=== PATIENT | female | born 1980 ===

== ENCOUNTER 2021-12-19 12:00 | Observation (INO) | payer OTHER ==
[~2021-12-19] VITALS: Ht 167.6 cm; Wt 86.1 kg
[2021-12-19 12:38] LABS: BASOPHILS % (AUTO) 0.7 % (0.0-5.0); EOSINOPHILS % (AUTO) 2.3 % (0.0-8.0); HEMATOCRIT 41.6 % (36-48); LYMPHOCYTES % (AUTO) 31.6 % (21.0-51.0); MEAN CORPUSCULAR HEMOGLOBIN 31.6 pg (27.0-33.0); MEAN CORPUSCULAR HGB CONC 33.4 g/dL (32.0-36.0); MEAN CORPUSCULAR VOLUME 94.5 fL (79-99); MONOCYTES % (AUTO) 6.9 % (3.0-13.0); NEUTROPHILS % (AUTO) 57.8 % (40.0-77.0); PLATELET COUNT (AUTO) 285 K/uL (130-400); RED CELL DISTRIBUTION WIDTH 14.1 % (11.0-15.5); WHITE BLOOD COUNT (AUTO) 7.1 K/uL (4.8-10.8)
[2021-12-19 12:49] LABS: CREATININE 0.8 mg/dL (0.5-1.5); POTASSIUM 3.9 mmol/L (3.5-5.1)
[2021-12-19 12:51] LABS: INR 0.93 (0.85-1.15)
[2021-12-19 12:52] LABS: PARTIAL THROMBOPLASTIN TIME 28.7 SEC (26.3-35.5)
[2021-12-19 16:29] VITALS: BP 140/83
[2021-12-19] MEDS ORDERED: TOPI50TA24 PO (17:39)
[2021-12-19] MEDS ORDERED: ESCI20TA PO (17:39)
[2021-12-19] MEDS ORDERED: MINO100C6 PO (17:39)
[2021-12-19] MEDS ORDERED: LEVE1000 PO (17:39)
[2021-12-19] MEDS ORDERED: METH-387 PO (17:39)
[2021-12-19] MEDS ORDERED: NAPR-1023 PO (17:39)
[2021-12-21] VITALS (25 sets, daily range): BP systolic 103–128; BP diastolic 64–88
[2021-12-21] MEDS ORDERED: CEFAZOLIN SODIUM 1 GM VIAL ONE (06:38)
[2021-12-21] MEDS ORDERED: LACTATED RINGERS 1000ML 1,000 ML IV ONE (06:38)
[2021-12-21] MEDS ORDERED: LIDOCAINE 1%-EPI 1:100,000 20 ML VIAL IJ ONE (07:03)
[2021-12-21] MEDS ORDERED: FAMOTIDINE 20MG VIAL IV ONE (07:23)
[2021-12-21] MEDS ORDERED: HYDROMORPHONE 1 MG INJ ONE (07:23)
[2021-12-21] MEDS ORDERED: ROCURONIUM 10MG/1ML SYR 10 MG/ML ML ONE (07:25)
[2021-12-21] MEDS ORDERED: PROPOFOL 10 MG/ML 20ML VIAL IV ONE ×2 (07:25→07:30)
[2021-12-21] MEDS ORDERED: MIDAZOLAM HCL 1 MG/ML 2ML VIAL ONE (07:25)
[2021-12-21] MEDS ORDERED: GLYCOPYRROLATE 1 MG/5 ML SYRINGE ONE (07:25)
[2021-12-21] MEDS ORDERED: SUCCINYLCHOLINE 200MG/10ML SYR ONE (07:25)
[2021-12-21] MEDS ORDERED: LIDOCAINE PF 100MG/5ML (2%) SYRINGE 5ML ONE (07:25)
[2021-12-21] MEDS ORDERED: FENTANYL CITRATE PF 50 MCG/1 ML 2ML VIAL ONE (07:26)
[2021-12-21] MEDS ORDERED: CEFAZOLIN SODIUM 1 GM VIAL IVP ONE (08:00)
[2021-12-21] MEDS ORDERED: ONDANSETRON 4MG INJ ONE ×2 (08:16→11:34)
[2021-12-21] MEDS ORDERED: DEXAMETHASONE SOD PHOSPHATE 10MG/ML 1ML VIAL ONE (10:09)
[2021-12-21] MEDS ORDERED: MEPERIDINE-PF 25 MG/ML SYG ONE (11:34)
[2021-12-21] MEDS ORDERED: ONDANSETRON 4MG INJ IVP PRN (12:30)
[2021-12-21] MEDS ORDERED: ACETAMINOPHEN 500 MG TABLET PO PRN (12:30)
[2021-12-21] MEDS ORDERED: NAPROXEN 500 MG TABLET PO PRN (12:30)
[2021-12-21] MEDS ORDERED: LACTATED RINGERS 1000ML 1,000 ML IV SCH (12:30)
[2021-12-21] MEDS: OXYCODONE HCL 5 MG TAB PO PRN ×2 (13:16→19:34)
[2021-12-21] MEDS ORDERED: CALCIUM CARB 500MG ONE (19:14)
[2021-12-21] MEDS ORDERED: LEVETIRACETAM 500 MG TABLET PO ONE (19:14)
[2021-12-21] MEDS: CALCIUM CARB 500MG PO SCH (19:34)
[2021-12-21] MEDS: LEVETIRACETAM 500 MG TABLET PO SCH (19:37)
[2021-12-21] MEDS ORDERED: TOPIRAMATE 100 MG TAB PO SCH (21:00)
[2021-12-22] VITALS: BP 114/74
[2021-12-22] MEDS: OXYCODONE HCL 5 MG TAB PO PRN (03:04)
[2021-12-22 04:00] VITALS: BP 87/47
[2021-12-22] MEDS ORDERED: LEVOTHYROXINE 112 MCG TABLET PO SCH (06:30)
[2021-12-22] MEDS ORDERED: LEVOTHYROXINE 25 MCG TABLET PO SCH (06:30)
[2021-12-22 07:00] VITALS: BP 112/70
[2021-12-22] MEDS: LEVETIRACETAM 500 MG TABLET PO SCH (08:49)
[2021-12-22] MEDS: CALCIUM CARB 500MG PO SCH (08:50)
[2021-12-22] MEDS ORDERED: CITALOPRAM 20 MG TABLET PO SCH (09:00)
[2021-12-22] MEDS ORDERED: MINOCYCLINE HCL 50 MG CAP PO SCH (09:00)
== END 2021-12-22 09:10 | disposition home or self-care (01) ==
LOC: EDSTATUS 12:00 → DAHIP 12-21 05:35 → 4BH 12-21 12:25 → 4CH 12-22 08:01 → 4BH 12-22 08:02
PROVIDERS: ADMIT Otolaryngology; ATTEND Otolaryngology
DX: E05.90 Thyrotoxicosis, unspecified without thyrotoxic crisis or storm (principal); Z20.822 Contact with and (suspected) exposure to COVID-19; E04.2 Nontoxic multinodular goiter; E06.3 Autoimmune thyroiditis; Z79.899 Other long term (current) drug therapy; Z98.890 Other specified postprocedural states
CPT/HCPCS: 36415 ×3; 60240; 80048; 82310 ×3; 83970; 84703; 85025; 85610; 85730; 87635; A4213; A4215; A4216; A4221; A4222; A4223 ×2; A4335; A4344; A4600; A4649 ×2; A4663; A4930 ×3; A6260; G0378 ×21; G0379 ×2; J0330; J0690; J1100; J1170; J2001; J2175; J2250; J2405 ×2; J2704 ×2; J3010; J3490 ×3; J7120 ×2